=== PATIENT | female | born 1995 | race Caucasian/White ===

== ENCOUNTER 2020-09-01 21:37 | Emergency (ER) | payer OTHER, MEDICAID, SELFPAY ==
[2020-09-01 22:36] VITALS: PULSE 90; RESP 16; TEMP 36.7; O2SAT 97; BMI 39.8
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
[2020-09-01 23:20] LABS: UPreg QC Valid YES; Urine Pregnancy NEGATIVE (NEGATIVE)
--- NOTE | 2020-09-01 23:34 | PC.NURSE ---
PT MOVED TO ED 16 REPORT GIVEN TO EVELYN JAFFE
[2020-09-01] MEDS: Acetaminophen 325 MG TABLET 650 MG PO (23:36)
[2020-09-01] MEDS: Ibuprofen 600 MG TABLET PO (23:36)
[2020-09-01 23:56] VITALS: BP 115/63; PULSE 70; RESP 18; TEMP 36.7; O2SAT 98
== END 2020-09-02 00:24 | disposition home or self-care (01) ==
PROVIDERS: Physician Assistant Medical; Emergency Provider Emergency Medicine
DX: S39.92XA Unspecified injury of lower back, initial encounter (principal); M54.6 Pain in thoracic spine; V43.52XA Car driver injured in collision with other type car in traffic accident, initial encounter; Y93.9 Activity, unspecified; Y92.481 Parking lot as the place of occurrence of the external cause; Y99.9 Unspecified external cause status; F17.200 Nicotine dependence, unspecified, uncomplicated; Z71.6 Tobacco abuse counseling
CPT/HCPCS: 71045; 72070; 81025; 99283; 99284

== ENCOUNTER 2022-11-30 16:10 | Outpatient (REF) | payer MEDICAID, SELFPAY ==
--- NOTE | ~2022-11-30 | US_ITS ---
EXAMINATION: US PELVIS COMPLETE CLINICAL INFORMATION: Menorrhagia COMPARISON: None TECHNIQUE: Transabdominal and transvaginal imaging was performed. FINDINGS: The uterus is of normal size and echogenicity measuring 7.2 x 3.8 x 3.8 cm. A regular homogeneous endometrium is identified measuring 1.7 cm. Both ovaries are of normal size and echogenicity. The right measures 3.5 x 2.5 x 2.6 cm for a volume of 11.9 mL. The left measures 3.6 x 2.2 x 2.3 cm for a volume of 9.5 mL. There is trace physiologic volume pelvic free fluid. US/US pelvic and transvaginal IMPRESSION: The endometrium measures 1.7 cm in thickness, recommend correlation with phase of menstrual cycle. No discrete endometrial lesion identified however given thickness, repeat exam could be obtained in the immediate postmenstrual state or saline sonohysterogram could be obtained for further evaluation if warranted clinically.
== END 2022-11-30 16:11 | disposition home or self-care (01) ==
LOC: HO.US 16:10
PROVIDERS: PCP Internal Medicine; Visit Provider Advanced Practice Midwife
DX: N92.0 Excessive and frequent menstruation with regular cycle (principal)
CPT/HCPCS: 76830; 76856

== ENCOUNTER 2022-12-12 12:10 | Outpatient (REF) | payer MEDICAID, SELFPAY ==
[2022-12-12 14:30] LABS: Hematocrit 42.4 % (37.0-47.0); Hemoglobin 14.2 g/dl (12.0-16.0); Mean Corpuscular HGB Conc 33.5 g/dl (31.0-35.0); Mean Corpuscular Hemoglobin 29.5 pg (27.0-33.0); Mean Platelet Volume 11.8 fL (9.4-12.3); Platelet Count 301 X10*3/uL (160-400); Red Blood Count 4.82 X10*6/uL (4.20-5.50); Red Cell Distribution Width 11.9 % (11.0-16.0); White Blood Count 10.5 X10*3/uL (4.8-10.8)
[2022-12-12 15:11] LABS: HCG Quantitative < 2 mIU/mL; TSH reflex Free T4 0.73 uIU/mL (0.32-4.0)
[2022-12-13 05:35] LABS: CT PCR NOT DETECTED (Not Detect.); NG PCR NOT DETECTED (Not Detect.)
== END 2022-12-12 12:11 | disposition home or self-care (01) ==
LOC: HO.LNP 12:10
PROVIDERS: Visit Provider Obstetrics & Gynecology
DX: N93.9 Abnormal uterine and vaginal bleeding, unspecified (principal)
CPT/HCPCS: 0353U; 84443; 84702; 85027; 88142; 99202

== ENCOUNTER → 2023-03-16 12:01 | Outpatient (BNVA) | payer MEDICAID, SELFPAY | PROVIDERS: Visit Provider Obstetrics & Gynecology | DX: N93.9 Abnormal uterine and vaginal bleeding, unspecified (principal) | CPT/HCPCS: 99212 ==